=== PATIENT | male | born 1980 | race Caucasian/White ===

== ENCOUNTER 2017-03-18 09:00 | Emergency (ER) | payer OTHER | END 2017-03-18 12:00 | disposition home or self-care (01) | LOC: ER1 09:00 | DX: L02.416 Cutaneous abscess of left lower limb (principal); F17.210 Nicotine dependence, cigarettes, uncomplicated | CPT/HCPCS: 10061; 87070; 87205; 96372; 99283; J1885 ==

== ENCOUNTER → 2021-08-24 | Outpatient (CLI) | payer OTHER ==
[~2021-08-24] MED LIST: ZOFRAN ODT 4 MG4 MG SL
== END ==
LOC: EXRD 14:49
DX: M25.562 Pain in left knee (principal); M71.22 Synovial cyst of popliteal space [Baker], left knee
CPT/HCPCS: 76882

== ENCOUNTER 2021-08-29 06:19 | Emergency (ER) | payer OTHER ==
[2021-08-29] MEDS ORDERED: CLEOCIN HCL300 MG PO (07:58)
[2021-08-29] MEDS ORDERED: MEDROL DOSEPAK 24 MG PO (07:58)
== END 2021-08-29 08:25 | disposition home or self-care (01) ==
LOC: ER1 06:19
DX: J02.9 Acute pharyngitis, unspecified (principal); F17.210 Nicotine dependence, cigarettes, uncomplicated; K21.9 Gastro-esophageal reflux disease without esophagitis; Z88.1 Allergy status to other antibiotic agents
CPT/HCPCS: 87081; 87880; 96372; 96374; 99283; J1100